=== PATIENT | male | born 1980 | race Caucasian/White ===

== ENCOUNTER 2020-11-06 12:47 | Emergency (ER) | payer MEDICAID ==
[~2020-11-06] VITALS: Ht 182.9 cm; Wt 122.5 kg
[2020-11-06 13:00] VITALS: BP_SYST 121
--- NOTE | 2020-11-06 13:00 | NUR ---
Patient to ER bed 5 to gown for evaluation. Side rails up.
--- NOTE | 2020-11-06 13:01 | NUR ---
Pt came into ER with complaint left sided upper rib pain 10/06. Pt reports he was playing soccer, tripped, and fell onto his left side denies hitting his head or loss of concioussness. Pt denies pain with inspiration or SOB. No signs of trauma present. Pt AAOX4 speaking full sentences. Pt resting in gurney no distress noted.
--- NOTE | 2020-11-06 13:24 | NUR ---
ER at bedside examining patient.
[2020-11-06] MEDS ORDERED: KETOROLAC TROMETHAMINE 60 MG/2 ML VIAL IM ONE (13:30)
[2020-11-06] MEDS ORDERED: IBUP-1971 PO (13:51)
[2020-11-06] MEDS ORDERED: HYDR-3917 PO (13:51)
[2020-11-06 13:59] VITALS: BP_SYST 121
--- NOTE | 2020-11-06 13:59 | NUR ---
Patient given written and verbal discharge instructions and verbalizes understanding. ER MD discussed with patient the results and treatment provided. Patient in stable condition. ID arm band removed. Rx of Horace and Ibuprofen given. Patient educated on pain management and to follow up with PMD. Pain Scale 2/10. Opportunity for questions provided and answered. Medication side effect fact sheet provided.
== END 2020-11-06 13:59 | disposition home or self-care (01) ==
LOC: SED 12:47
DX: R07.89 Other chest pain (principal); W18.39XA Other fall on same level, initial encounter; Y93.89 Activity, other specified; Y92.89 Other specified places as the place of occurrence of the external cause; Y99.8 Other external cause status
CPT/HCPCS: 96372; 99283; J1885